=== PATIENT | female | born 1995 | race Two or more races ===

== ENCOUNTER 2022-01-06 01:37 | Emergency (ER) | payer MEDICAID ==
[~2022-01-06] VITALS: Ht 162.6 cm; Wt 61.2 kg
[2022-01-06 01:37] VITALS: BP 120/68
== END 2022-01-06 02:35 | disposition left against medical advice (07) ==
LOC: ER 01:37
DX: R10.10 Upper abdominal pain, unspecified (principal); R11.0 Nausea; Z53.21 Procedure and treatment not carried out due to patient leaving prior to being seen by health care provider